=== PATIENT | female | born 1995 | race African-American/Black ===

== ENCOUNTER 2017-11-28 21:54 | Emergency (ER) | payer SELFPAY ==
[2017-11-28 22:13] LABS: #Monocytes 0.4 thou/uL (0.11-0.59); #Neutrophils 6.2 thou/uL (1.40-6.50); %Basophils 0.6 % (0.0-1.0); %Eosinophils 0.4 % (0.0-10.0); %Lymphocytes 23.3 % (21.0-51.0); %Monocytes 4.2 % (0.0-10.0); %Neutrophils 71.5 % (42.0-75.0); Hemoglobin 13.5 g/dL (12.0-16.0); Mean Corpuscular HGB CONC 32.6 g/dL (32.0-36.0); Mean Corpuscular Volume 95.2 fL (78.0-98.0); Mean Platelet Volume 8.7 fL (7.4-10.4); Platelet Count 231 thou/uL (130-400); RBC Distribution Width 12.7 % (11.5-14.5); Red Blood Cell (RBC) Count 4.35 mill/uL (4.20-5.40); White Blood Cell (WBC) Count 8.7 thou/uL (4.8-10.8)
[2017-11-28 22:34] LABS: ALT (SGPT) 12 U/L (8-55); AST (SGOT) 12 U/L (5-34); Albumin 3.6 g/dL (3.5-5.0); Alkaline Phosphatase 241 U/L (40-150); Anion Gap 19 mmol/L (10-20); BUN (Urea Nitrogen) 23 mg/dL (7.0-18.7); Bilirubin, Total 0.5 mg/dL (0.2-1.2); Calc. Creatinine Clearance 0 mL/min (70-130); Carbon Dioxide 18 mmol/L (22-29); Chloride 96 mmol/L (98-107); Estimated GFR-MDRD 39; Globulin 3.1 g/dL (2.4-3.5); Protein, Total 6.7 g/dL (6.0-8.3); Sodium 128 mmol/L (136-145)
[2017-11-28 22:44] LABS: Glucose 831 mg/dL (70-105)
[2017-11-28 23:30] LABS: Phosphorus 3.6 mg/dL (2.3-4.7)
[2017-11-28 23:41] LABS: Base Excess-Venous -6.6 mmol/L (0 (+/- 2.5)); Bicarbonate (HCO3v) 18.2 mmol/L (1.0-85.0); CO2 Tension (PvCO2) 33.9 mmHg (41.0-51.0); Calcium, Ionized 1.21 mmol/L (1.12-1.32); Hemoglobin - Calc 15.3 g/dL (12.0-18.0); O2 Tension (PvO2) 79.6 mmHg (35.0-45.0); Potassium 5.4 mmol/L (3.4-4.7); T. Carbon Dioxide 19.3 mmol/L (1.0-85.0); pH (Venous) 7.338 (7.35-7.45)
[2017-11-28] MEDS ORDERED: Insulin Regular 300 UNITS/3 ML VIAL ONE (23:42)
[2017-11-28 23:49] LABS: BHCG - Serum Negative (NEGATIVE)
[2017-11-28 23:50] LABS: Pregs Control Background? CLEAR/WHITE (CLR/WHITE); Pregs Control Bar Appear? YES (CONTROL BAR)
[2017-11-28 23:58] LABS: Bilirubin Negative (Negative); Blood, Urine Trace (Negative); Glucose, Urine (Dipstick) >=1000 mg/dL (Negative); Leukocyte Small (Negative); Nitrite Negative (Negative); Protein, Urine (Dipstick) Negative (Neg-Trace); Specific Gravity, Urine 1.025 (1.002-1.036); Urobilinogen 0.2 mg/dL (0.2-1.0)
[2017-11-29 00:01] LABS: Bacteria/HPF Rare-Few HPF (None Seen); Pathc Cast-AUWi Flag 0.14 (0-2.49); WBC/HPF 21-50 HPF (0-3)
[2017-11-29 00:09] LABS: Hyaline Casts/LPF NONE SEEN LPF (0-3 Hyaline)
[2017-11-29 00:10] LABS: Clarity Hazy (Clear); RBC/HPF 0-3 HPF (0-3)
[2017-11-29 00:11] LABS: Trichomonas/HPF 1+ HPF (None Seen)
[2017-11-29 00:12] LABS: Yeast-All Forms 1+ HPF (None Seen)
[2017-11-29] MEDS ORDERED: Ondansetron ODT 4 MG TAB ONE (03:37)
[2017-11-29] MEDS ORDERED: metroNIDAZOLE 500 MG TAB PO SCH (03:45)
== END 2017-11-29 04:24 | disposition home or self-care (01) ==
LOC: ERS 21:54
DX: E10.65 Type 1 diabetes mellitus with hyperglycemia (principal); A59.01 Trichomonal vulvovaginitis
CPT/HCPCS: 36415; 36416; 80053; 81003; 81015; 82010; 82330; 82803; 83735; 84100; 84703; 85025; 87086; 96361; 96374; J1815; Q0162

== ENCOUNTER 2017-12-03 10:37 | Inpatient (IN) | payer SELFPAY ==
[2017-12-03 11:34] LABS: Base Excess-Venous -12.5 mmol/L (0 (+/- 2.5)); Bicarbonate (HCO3v) 13.3 mmol/L (1.0-85.0); CO2 Tension (PvCO2) 30.1 mmHg (41.0-51.0); Calcium, Ionized 1.06 mmol/L (1.12-1.32); Hemoglobin - Calc 15.6 g/dL (12.0-18.0); O2 Tension (PvO2) 51.6 mmHg (35.0-45.0); Potassium 3.5 mmol/L (3.4-4.7); T. Carbon Dioxide 14.2 mmol/L (1.0-85.0); pH (Venous) 7.253 (7.35-7.45); vO2 Saturation-calc 81.1 % (94-98)
[2017-12-03 11:40] LABS: #Basophils 0.1 thou/uL (0.0-0.2); #Lymphocytes 1.6 thou/uL (1.20-3.40); #Monocytes 0.2 thou/uL (0.11-0.59); #Neutrophils 5.3 thou/uL (1.40-6.50); %Basophils 0.7 % (0.0-1.0); %Eosinophils 0.5 % (0.0-10.0); %Lymphocytes 22.2 % (21.0-51.0); %Monocytes 3.2 % (0.0-10.0); %Neutrophils 73.5 % (42.0-75.0); Hemoglobin 13.7 g/dL (12.0-16.0); Mean Corpuscular HGB CONC 32.5 g/dL (32.0-36.0); Mean Corpuscular Hemoglobin 30.1 pg (27.0-31.0); Mean Corpuscular Volume 92.7 fL (78.0-98.0); Mean Platelet Volume 8.7 fL (7.4-10.4); Platelet Count 247 thou/uL (130-400); RBC Distribution Width 12.8 % (11.5-14.5); Red Blood Cell (RBC) Count 4.53 mill/uL (4.20-5.40); White Blood Cell (WBC) Count 7.2 thou/uL (4.8-10.8)
[2017-12-03 11:55] LABS: ALT (SGPT) 13 U/L (8-55); AST (SGOT) 15 U/L (5-34); Albumin 3.8 g/dL (3.5-5.0); Alkaline Phosphatase 139 U/L (40-150); Anion Gap 25 mmol/L (10-20); BUN (Urea Nitrogen) 14 mg/dL (7.0-18.7); Bilirubin, Total 0.3 mg/dL (0.2-1.2); Calc. Creatinine Clearance 0 mL/min (70-130); Carbon Dioxide 11 mmol/L (22-29); Chloride 104 mmol/L (98-107); Estimated GFR-MDRD 59; Globulin 3.4 g/dL (2.4-3.5); Glucose 302 mg/dL (70-105); Potassium 3.7 mmol/L (3.5-5.1); Protein, Total 7.2 g/dL (6.0-8.3); Sodium 136 mmol/L (136-145)
[2017-12-03 11:57] LABS: Bilirubin Negative (Negative); Blood, Urine Large (Negative); Clarity CLEAR (Clear); Glucose, Urine (Dipstick) >=1000 mg/dL (Negative); Leukocyte Negative (Negative); Nitrite Negative (Negative); Protein, Urine (Dipstick) Negative (Neg-Trace); Specific Gravity, Urine 1.031 (1.002-1.036); Urobilinogen 0.2 mg/dL (0.2-1.0)
[2017-12-03 11:59] LABS: Bacteria/HPF None Seen HPF (None Seen); Hyaline Casts/LPF 0-3 HYALINE CAST LPF (0-3 Hyaline); Squamous Epithelial 0-3 HPF (0-3)
[2017-12-03] MEDS ORDERED: Insulin Regular 100 units/100 ml in NS IVPB SCH (12:45)
[2017-12-03] MEDS ORDERED: D5 1/2 NS w/20 mEq KCL 1,000 ML IV ONE (13:45)
--- NOTE | 2017-12-03 13:49 | PDOC.PULCN ---
<Jovany Hallman - Last Filed: 12/03/17 16:00> Pulmonology Consult: HPI - Date of Consult Date: 12/03/17 Time: 13:30 - Consult Details Reason for Consult: DKA Requesting Physician: Oscar - History of Present Illness HPI: TALON MULLEN is a 21 year-old F w/ PMH of T1DM. She has recently become homeless , she is estranged from family and from . She is living with a friend in [place] but has had all of her previous medical care in [place]. She has been out of her lantus for about a week, so she has only been using short- acting insulin. She does not have enough money to pay for the lanuts. She had vomiting and felt dehydrated this morning, she felt sick enough that she called EMS for evaluation. Was was seen in our ED 11/28 for glucose of 890. She denies fever, chills, sweats, diarrhea, or burning with urination. Pulmonology Consult: ROS - Review of Systems Constitutional: negative: fever, chills, sweats Cardiovascular: negative: chest pain, palpitations Respiratory: negative: congestion, cough, chest tightness Pulmonology Consult: PMH Source: patient Past Medical History: T1DM - Social History Smoking Status: Never smoker Alcohol Use: none Drug Use History: none Living Situation: other (w/ friend, homeless) Pulmonology Consult: Meds - Medications MAR Reviewed: Yes Medications: Current Medications Insulin Human Regular 100 (units/ Sodium Chloride) 101 mls @ 0 mls/hr IVPB INF JASON PRN Reason: Titrate Potassium Chloride/Dextrose/Sod Cl (D5 1/2 Ns W/20 Meq Kcl) 1,000 mls @ 250 mls /hr IV .Q4H ONE Stop: 12/03/17 17:44 - Allergies Allergies/Adverse Reactions: Allergies Allergy/AdvReac Type Severity Reaction Status Date / Time No Known Drug Allergies Allergy Verified 11/29/17 03:41 Pulmonology Consult: PE - Physical Exam Constitutional: NAD HEENT: moist MMs Cardiovascular: RRR, no significant murmur Respiratory: clear to auscultation anteriorly Gastrointestinal: soft, non-tender, no distention, positive bowel sounds Musculoskeletal: no edema, pulses present Neurological: non-focal, moves all 4 limbs Psychiatric: normal affect, A&O x 3 Skin: no rash, cap refill <2 seconds Pulmonology Consult: Results - Labs Result Diagrams: 12/03/17 11:23 12/03/17 14:59 - ABG Interpretation ABG Results: POC Bicarbonate Calc 13.3 mmol/L (1.0-85.0) 12/03/17 11:29 Pulmonology Consult: A/P - Time Time: 50% of the time was spent in coordination of care (as documented) at patient's floor/unit and/or counseling patient. Time with Patient: greater than 50 minutes - Plan Plan: # T1DM, DKA - gap 25->13, lactic 3.3, Cr 1.37, glu 302 - no signs of infection, chest pain, abdominal pain - check test - on insulin drip, started lantus 20U, stop drip 2 hrs after lantus given - start humalog 5 U w/ meals, moderate SSI - DKA appears to be 2/2 lack of long-acting insulin - replete K, mag, phos PRN - Pulse in 90s, moist mucosa, appears only slightly hypovolemic - q6 hr BMP # Social Discord - recently from , estranged from family - cannot afford insulin - living with frined - consult CM, refer for financial assistance program at [facility] Fluids: per protocol Diet: NPO Code: full Dispo: 1-2 days <Kristopher Jessica - Last Filed: 12/03/17 21:50> Pulmonology Consult: HPI - History of Present Illness HPI: TALON MULLEN is a 21 year-old F Pulmonology Consult: Meds - Medications Medications: Current Medications Dextrose/Water (Dextrose 50%) 25 gm SLOW IVP PRN PRN PRN Reason: Hypoglycemia Glucagon (Glucagon) 1 mg IM PRN PRN PRN Reason: Hypoglycemia Potassium Chloride 40 meq/ (Sodium Chloride) 270 mls @ 135 mls/hr IVPB ASDIR PRN PRN Reason: FOR SERUM K+ 2.5 - 3.5 Potassium Chloride 40 meq/ (Device) 100 mls @ 50 mls/hr IVPB ASDIR PRN PRN Reason: FOR SERUM K+ 2.5 - 3.5 Magnesium Sulfate 1 gm/ Sodium (Chloride) 102 mls @ 102 mls/hr IV PRN PRN PRN Reason: MAG LEVEL 1.4 - 2.0 Magnesium Sulfate 2 gm/ Device 100 mls @ 100 mls/hr IVPB ASDIR PRN PRN Reason: MAGNESIUM < 1.4 Potassium Phosphate 9 mmol/ (Sodium Chloride) 103 mls @ 25.75 mls/hr IVPB ASDIR PRN PRN Reason: Phosphate 1.0-1.8 Potassium Phosphate 12 mmol/ (Sodium Chloride) 254 mls @ 63.5 mls/hr IV ASDIR PRN PRN Reason: Serum phosphate 0.5-0.9 Potassium Phosphate 15 mmol/ (Sodium Chloride) 255 mls @ 63.75 mls/hr IV ASDIR PRN PRN Reason: Serum Phos < 0.5 Potassium Chloride/Dextrose/Sod Cl (D5 1/2 Ns W/20 Meq Kcl) 1,000 mls @ 125 mls /hr IV .Q8H JASON Last Admin: 12/03/17 16:13 Dose: 1,000 mls Dextrose/Water (D5w) 1,000 mls @ 0 mls/hr IV .Q0M PRN; As Directed PRN Reason: Hypoglycemia Insulin Glargine 20 units/ (Miscellaneous Medication) 0.2 mls @ 0 mls/hr SC QAM JASON Insulin Glargine 20 units/ (Miscellaneous Medication) 0.2 mls @ 0 mls/hr SC HS JASON Insulin Human Lispro (Humalog) 5 units SC 0800 JASON Insulin Human Lispro (Humalog) 5 units SC 1200 JASON Insulin Human Lispro (Humalog) 5 units SC 1700 JASON Last Admin: 12/03/17 16:46 Dose: Not Given Insulin Human Lispro (Humalog) 0 units SC .MODERATE SLIDING SC PRN PRN Reason: Moderate Correctional Scale Last Admin: 12/03/17 20:11 Dose: 8 unit Magnesium Oxide (Magnesium Oxide) 400 mg PO BIDPRN PRN PRN Reason: FOR SERUM MAG 1.4 - 2.0 Magnesium Oxide (Magnesium Oxide) 800 mg PO PRN PRN PRN Reason: FOR SERUM MAG < 1.4 Miscellaneous Medication (Phos-Nak) 1 pkt PO TIDPRN PRN PRN Reason: FOR PHOS LEVEL 1.0 - 1.8 Miscellaneous Medication (Phos-Nak) 2 pkt PO TIDPRN PRN PRN Reason: FOR PHOS LEVEL 0.5 - 1.0 Ccu Electrolyte (Replacement Protocol) 0 each FS PRN PRN PRN Reason: FOR ELECTROLYTE REPLACEMENT Potassium Chloride (K-Dur) 40 meq PO ASDIR PRN PRN Reason: FOR SERUM K+ 2.5 - 3.5 Potassium Chloride (Klor-Con) 40 meq PER TUBE ASDIR PRN PRN Reason: FOR SERUM K+ 2.5-3.5 Pulmonology Consult: Results - Labs Result Diagrams: 12/03/17 11:23 12/03/17 18:33 - ABG Interpretation ABG Results: POC Bicarbonate Calc 13.3 mmol/L (1.0-85.0) 12/03/17 11:29 Pulmonology Consult: A/P - Time Time: 50% of the time was spent in coordination of care (as documented) at patient's floor/unit and/or counseling patient. Attending Addendum - Attending Addendum Date/Time: 12/03/172146 I personally evaluated the patient and discussed the management with Dr. Hallman. I agree with the History, Examination, Assessment and Plan documented above with any addition or exceptions noted below. 70 minutes have been devoted to this patient in various activities. I personally reviewed all imaging studies and laboratory data noted within this document. For 50% of this time, I was interacting with the patient at bedside or coordinating care with the care team. For the remainder of the time, I was immediately available to the patient in the hospital unit.
[2017-12-03] MEDS ORDERED: CCU Electrolyte Replacement 1 EACH IVPB ONE (14:46)
[2017-12-03] MEDS ORDERED: Dextrose 5 %-0.45 % NaCl 1,000 ML IV PRN (14:46)
[2017-12-03] MEDS ORDERED: NS 0.9% w/ 20 MEQ KCL 1,000 ML IV PRN ×2 (14:46)
[2017-12-03] MEDS ORDERED: Sodium Chloride 0.9% 1,000 ML IV PRN ×4 (14:46)
[2017-12-03] MEDS ORDERED: D5 1/2 NS w/20 mEq KCL 1,000 ML IV PRN (14:46)
[2017-12-03 14:52] VITALS: BMI 26.6
[2017-12-03] MEDS ORDERED: Potassium Chloride 40 MEQ in Sodium Chloride 0.9% 250 ML 250 ML IVPB PRN (15:03)
[2017-12-03] MEDS ORDERED: Potassium Phosphate 15 MMOL in Sodium Chloride 0.9% 250 ML 250 ML IV PRN (15:03)
[2017-12-03] MEDS ORDERED: Magnesium 2 GM/NS 0.9% 100 ML 2 GM in Premix Bag 1 BAG IVPB PRN (15:03)
[2017-12-03] MEDS ORDERED: Potassium Chloride 40 MEQ in Premix Bag 1 BAG IVPB PRN (15:03)
[2017-12-03] MEDS ORDERED: CCU ELECTROLYTE REPLACEMENT PROTOCOL FS PRN (15:03)
[2017-12-03] MEDS ORDERED: Magnesium Oxide 400 MG TAB PO PRN ×2 (15:03)
[2017-12-03] MEDS ORDERED: Potassium Phosphate 9 MMOL in Sodium Chloride 0.9% 100 ML IVPB PRN (15:03)
[2017-12-03] MEDS ORDERED: Potassium Phosphate 12 MMOL in Sodium Chloride 0.9% 250 ML 250 ML IV PRN (15:03)
[2017-12-03] MEDS ORDERED: Potassium Chloride 20 MEQ TAB PO PRN (15:03)
[2017-12-03 15:24] LABS: Anion Gap 13 mmol/L (10-20); BUN (Urea Nitrogen) 11 mg/dL (7.0-18.7); Calc. Creatinine Clearance 97 mL/min (70-130); Calcium 8.3 mg/dL (7.8-10.44); Carbon Dioxide 21 mmol/L (22-29); Chloride 107 mmol/L (98-107); Estimated GFR-MDRD Greater than 90; Glucose 125 mg/dL (70-105); Potassium 3.6 mmol/L (3.5-5.1); Sodium 137 mmol/L (136-145)
[2017-12-03] MEDS ORDERED: Potassium Chloride 20 MEQ TAB PO SCH (15:30)
[2017-12-03] MEDS ORDERED: Insulin Glargine 20 UNITS in Pre-Filled Syringe SC SCH (15:45)
[2017-12-03] MEDS ORDERED: Dextrose 50% Abboject 50 ML SYRINGE SLOW IVP PRN (15:45)
[2017-12-03] MEDS ORDERED: Dextrose 5% in Water 1,000 ML IV PRN (15:45)
[2017-12-03 15:50] LABS: BHCG - Serum Negative (NEGATIVE); Pregs Control Background? CLEAR/WHITE (CLR/WHITE); Pregs Control Bar Appear? YES (CONTROL BAR)
[2017-12-03 15:52] LABS: Magnesium 1.6 mg/dL (1.6-2.6); Phosphorus 2.5 mg/dL (2.3-4.7)
--- NOTE | 2017-12-03 15:53 | HP ---
DATE OF ADMISSION: 12/03/2017 TIME OF SERVICE: 1400 PRIMARY CARE PHYSICIAN: None. CHIEF COMPLAINT: "I do not feel good". HISTORY OF PRESENT ILLNESS: Ms. Conklin is a pleasant 21-year-old female with histor y of type 1 diabetes mellitus who was recently became homeless. She family and from her . She lives with a friend in [place], but has received a prior medical care in [place]. Rebecca oleary is normally on Lantus 20 units subcu b.i.d. and 5 units of Humalog t.i.d. a.c., but has been out of her Lantus for about a week or so if she can afford it currently. This morning, she started feeling nauseated and vomited and felt dehydrated, so called the EMS. She was actually seen here about a we ek ago for a blood glucose of 890, but have been doing okay. No fevers or chills. No dysuria or hematuria. No rigors. No cold sweats. She denies any cough or sputum production. No abdominal pain. She presented to the emergency department where she was noted to have a blood sugar of 302. She was started on the DKA protocol. Bolus was not given due to her sugar of 300 and she was started on D5 h kala normal saline. Initial ABG showed a pH of 7.25, initial gap was 25 and her lactic acid was 3.3. We are subsequently called for admission. Currently, she is feeling better. She is actually feeling hungry. No other current complaints. PAST MEDICAL HISTORY: Diabetes mellitus type 1. PAST SURGICAL HISTORY: None. HOME MEDICATIONS: 1. Lantus 20 units subcu b.i.d. 2. Humalog 5 units subcu t.i.d. a.c. She states she is not on a sliding scale. ALLERGIES: No known drug allergies. FAMILY HISTORY: Negative for clotting or bleeding disorder, no immune dysfunction. SOCIAL HISTORY: Negative for alcohol, tobacco or drugs. She is currently without a home and is jenny ng with a friend. REVIEW OF SYSTEMS: All systems reviewed and negative except as per HPI. PHYSICAL EXAMINATION: VITAL SIGNS: On admission, temperature current is 90, pulse 97, blood pressure 120/68, respiratory r ate 20, satting 100% on room air. GENERAL: She is awake. She is alert. She is oriented x3. She is a well-developed, well-nourished female who appears to be in no acute distress. HEENT: Normocephalic, atraumatic. Pupils equal, round, react to light bilaterally. Mucous membrane s moist. There is no visible lesion. No thrush. NECK: Supple. There is no lymphadenopathy, JVD, or thyromegaly. Normal carotid upstrokes without b ruits. RESPIRATORY: Lungs are clear, no wheeze, no rales or rhonchi. ABDOMEN: Soft, it is nontender, nondistended, no mass or organomegaly with normoactive bowel sounds present in all 4 quadrants. EXTREMITIES: No cyanosis, no clubbing, . Trace pedal edema. SKIN: Otherwise warm, moist, and well perfused. MUSCULOSKELETAL: Normal to inspection. Large joints appear normal. No evidence of inflammation or palpable effusions. NEUROLOGIC: Cranial nerves II through XII are grossly intact without any focal neurologic deficits. LABORATORY DATA: CBC on presentation showed a white blood cell count of 7.2, hemoglobin 13.7, hemato crit of 42.0, and platelet count is normal at 247,000 with normal differential. VBG showed a pH of 7 .25, pCO2 of 30, pO2 of 51, and a calculated CO2 of 14. Her CMP showed a sodium 136, potassium 3.7, chloride 104, bicarbonate 11 with anion gap of 25, her BUN is 14, creatinine 1.37 and compared to jazz or week ago, it was actually improved. Glucose was 302. Liver functions normal. Urinalysis shows 7 -10 white blood cells, no epithelial cells, 4-6 red cells, no bacteria. RADIOGRAPHIC STUDIES: None. ASSESSMENT AND PLAN: 1. Diabetic ketoacidosis. The patient does have acidemia, we will place her on a DKA protocol that she is already at the step 2. She is feeling hungry, so we will give her diabetic diet. When she is eating well and stable, we will go ahead and place her on her regular insulin regimen. We will cons ult social services designee/case management for assistance to see we can help her get some medicines. 3. Diabetes mellitus type 1, as above. 4. Lactic acidosis secondary to volume contraction and diabetic ketoacidosis, improving with hydrati on.
[2017-12-03] MEDS: D5 1/2 NS w/20 mEq KCL 1,000 ML IV SCH ×2 (16:13→22:24)
[2017-12-03] MEDS: HumaLOG 300 UNITS/3 ML VIAL SC SCH (16:46)
[2017-12-03 19:41] LABS: Anion Gap 12 mmol/L (10-20); BUN (Urea Nitrogen) 10 mg/dL (7.0-18.7); Calc. Creatinine Clearance 92 mL/min (70-130); Calcium 8.5 mg/dL (7.8-10.44); Carbon Dioxide 22 mmol/L (22-29); Chloride 106 mmol/L (98-107); Estimated GFR-MDRD 87; Glucose 224 mg/dL (70-105); Potassium 3.8 mmol/L (3.5-5.1); Sodium 136 mmol/L (136-145)
[2017-12-03] MEDS: HumaLOG 300 UNITS/3 ML VIAL SC PRN (20:11)
[2017-12-04 04:46] LABS: Anion Gap 11 mmol/L (10-20); BUN (Urea Nitrogen) 8 mg/dL (7.0-18.7); Calc. Creatinine Clearance 103 mL/min (70-130); Calcium 8.9 mg/dL (7.8-10.44); Carbon Dioxide 22 mmol/L (22-29); Chloride 107 mmol/L (98-107); Estimated GFR-MDRD Greater than 90; Potassium 4.4 mmol/L (3.5-5.1); Sodium 136 mmol/L (136-145)
[2017-12-04 04:58] LABS: Glucose 288 mg/dL (70-105)
[2017-12-04] MEDS: D5 1/2 NS w/20 mEq KCL 1,000 ML IV SCH ×2 (06:08→17:41)
[2017-12-04] MEDS: HumaLOG 300 UNITS/3 ML VIAL SC PRN ×2 (06:10→11:34)
[2017-12-04] MEDS ORDERED: HumaLOG 300 UNITS/3 ML VIAL SC SCH ×2 (08:00→12:00)
[2017-12-04] MEDS ORDERED: Insulin Glargine 20 UNITS in Pre-Filled Syringe SC SCH ×2 (09:00→21:00)
--- NOTE | 2017-12-04 09:36 | PDOC.PULPN ---
<Jovany Hallman - Last Filed: 12/04/17 09:34> Progress Note: Subj/Obj - Subjective Date: 12/04/17 Time: 09:00 Narrative: tolerated PO intake, denies abdmoninal pain or nausea, denies pain - ROS All systems: reviewed and no additional remarkable complaints except as stated Respiratory: no reported symptoms - Objective Allergies/Adverse Reactions: Allergies Allergy/AdvReac Type Severity Reaction Status Date / Time No Known Drug Allergies Allergy Verified 11/29/17 03:41 MAR Reviewed: Yes Vital Signs: Vital Signs Temp 97.5 F L 12/04/17 07:33 Pulse 106 H 12/04/17 07:33 Resp 18 12/04/17 07:33 BP 116/82 12/04/17 07:33 Pulse Ox 100 12/04/17 07:33 Intake & Output 12/03/17 12/04/17 12/04/17 18:59 06:59 18:59 Intake Total 868 2100 Output Total 1475 Balance 868 625 Weight 63.957 kg 65.374 kg Intake: Intake, IV Amount 568 1500 Oral 300 600 Output: Urine 1475 Other: Voiding Method Toilet Toilet Progress Note: Exam - Physical Exam Constitutional: NAD HEENT: PERRLA, moist MMs Cardiovascular: RRR, no significant murmur Gastrointestinal: soft, non-tender, no distention, positive bowel sounds Musculoskeletal: no edema, pulses present Neurological: non-focal, moves all 4 limbs Psychiatric: normal affect, A&O x 3 Skin: no rash, cap refill <2 seconds Progress Note: Data - Labs Result Diagrams: 12/03/17 11:23 12/04/17 03:27 Progress Note: A/P - Plan Plan: # T1DM, DKA - gap 25->13->11 - no signs of infection, chest pain, abdominal pain - gap closed, off insulin drip - tolerating PO, no pain # Social Discord - recently from , estranged from family - cannot afford insulin - living with frined - consult CM, refer for financial assistance program at [facility] - wrote paper scripts so she can take them to medication assistance program at [facility] - CM to follow Fluids: per protocol Diet: diabetic Code: full Dispo: today <Kristopher Jessica - Last Filed: 12/04/17 12:38> Progress Note: Subj/Obj - Objective Vital Signs: Vital Signs Temp 97.2 F L 12/04/17 11:23 Pulse 91 12/04/17 11:23 Resp 16 12/04/17 11:23 BP 111/77 12/04/17 11:23 Pulse Ox 100 12/04/17 11:23 Intake & Output 12/03/17 12/04/17 12/04/17 18:59 06:59 18:59 Intake Total 868 2100 Output Total 1475 Balance 868 625 Weight 141 lb 144 lb 2 oz Intake: Intake, IV Amount 568 1500 Oral 300 600 Output: Urine 1475 Other: Voiding Method Toilet Toilet Progress Note: Data - Labs Result Diagrams: 12/03/17 11:23 12/04/17 03:27 Attending Addendum - Attending Addendum Date/Time: 12/04/17 3637 I personally evaluated the patient and discussed the management with Dr. Hallman I agree with the History, Examination, Assessment and Plan documented above with any addition or exceptions noted below.
--- NOTE | 2017-12-04 11:18 | DIS ---
PRIMARY CARE PHYSICIAN: None. The patient is being set up with [facility] and will follow up w rafy Hallman at the [facility] until everything is established. DATE OF ADMISSION: 12/03/2017 DATE OF DISCHARGE: 12/04/2017 DISCHARGE DIAGNOSES: 1. Diabetic ketoacidosis. 2. Diabetes mellitus type 1. 3. Medical nonadherence. 4. Lactic acidosis. CONSULTATIONS: Pulmonary Critical Care. PROCEDURES: None. HISTORY AND PHYSICAL: Ms. Conklin is a 21-year-old female admitted in DKA after running out of Lantus insulin and having nausea and vomiting 1 day. HOSPITAL COURSE: The patient was seen and examined by me on arrival to the [facility]. She was given DKA protocol and by that evening was able to be switched off, start her on a diabetic diet and transition ed to Lantus and Humalog. She was continued on D5 overnight by the pneumatic deicer inspector and this morning still remained hyperglycemic, th is was discontinued and she was watched. Through the day she did have some tachycardia with movement , but was normal cardiac at rest. Arrangement made for her to obtain her insulin at little to no cos t on discharge and follow up as an outpatient. She is otherwise stable for discharge. DISCHARGE CONDITION: Stable. DISPOSITION: She is being discharged home via private vehicle PHYSICAL EXAMINATION: The patient was seen and examined on the day of discharge. Discharge plan and disposition was discussed with the patient and Pulmonary Critical Care team face t o face. DISCHARGE ACTIVITY: As tolerated. DISCHARGE DIET: Diabetic diet, 2000 kilocalorie constant carbohydrate diet recommended. DISCHARGE FOLLOWUP APPOINTMENTS: 1. Primary care physician next available. She will be set up with [facility]. 2. Dr. Jovany Hallman at the [facility] in the interim as needed.
[2017-12-04 11:40] LABS: Hemoglobin A1c 14.4 % (4.0-6.0)
[2017-12-04] MEDS: HumaLOG 300 UNITS/3 ML VIAL SC SCH (17:42)
[2017-12-04 20:22] VITALS: BP 109/72; TEMP 98.3
== END 2017-12-04 20:45 | disposition home or self-care (01) | DRG 639 ==
LOC: ERS 10:37 → IMCU/EMU 12:30
PROVIDERS: ADMIT Internal Medicine Infectious Disease; ATTEND Internal Medicine Infectious Disease
DX: E10.10 Type 1 diabetes mellitus with ketoacidosis without coma (principal); Z59.0 Homelessness; Z79.4 Long term (current) use of insulin
CPT/HCPCS: 36415; 36416; 80048; 80053; 81003; 81015; 82330; 82803; 83036; 83605; 83735; 84100; 84703; 85025; 93005; 96361; 96374; J1815; J7050